=== PATIENT | male | born 1975 | race Caucasian/White ===

== ENCOUNTER 2020-10-23 07:57 | Observation (INO) ==
[2020-10-23 08:14] VITALS: BMI 47.8
--- NOTE | 2020-10-23 08:20 | DR.GENAD ---
HPI Time Seen Time Seen by Provider: 10/23/20 08:11 HPI Comment HPI Comment: PATIENT COMPLAINS OF ACUTE DRY COUGH, FEVER, HEADACHE AND WATERY DIARRHEA 4-5 EPISODES DAILY FOR 1 WEEK. HAD EMESIS INITIALLY NOW DRY HEAVES. DENIES CHEST PAIN, DYSPNEA, HAD EPISODE OF SYNCOPE FELL AND STRUCK LEFT SIDE OF FACE ON FLOOR. UNSURE OF LOSS OF CONSCIOUSNESS. HAS HAD NECK PAIN PAST FEW WEEKS. PATIENT PLACED ON ANTIBIOTICS AUGMENTIN SEVERAL DAYS AGO. Complaint/Symptoms Chief Complaint Doctors Comments: dry cough, fever, diarrhea, syncope COVID-19 Coronavirus risk:travel/contact w/high risk person: No Has patient experienced Coronavirus symptoms: Yes Coronavirus symptoms experienced: Fever and Coughing Nurses notes reviewed Nurses Notes Review: Yes Source History Provided: Patient and EMS Mode of Arrival Mode of Arrival: EMS Timing Onset of Chief Complaint: 10/16/20 Came on: Gradually Duration Duration: Constant Duration: Weeks (1 week) Severity Severity: Moderate Associated Signs and Symptoms Associated Signs and Symptoms: nausea, emesis, diarrhea, syncope PMH PMH Past Surgical History: No Social History Do you use any recreational Drugs:: No Travel Risk Coronavirus risk:travel/contact w/high risk person: No Has patient experienced Coronavirus symptoms: No ROS Review of Systems Constitutional: See HPI and Weakness Eyes: No Symptoms Reported ENTM: No Symptoms Reported Respiratoy: Dry Cough Cardiovascular: No Symptoms Reported Gastrointestinal/Abdominal: See HPI, Diarrhea, Nausea and Vomiting Genitourinary: No Symptoms Reported Neurological: Headache and Other (syncope episode this am) Musculoskeletal: No Symptoms Reported Integumentary: No Symptoms Reported Hematologic/Lymphatic: No Symptoms Reported Endocrine: No Symptoms Reported Psychiatric: No Symptoms Reported All Other Systems: Reviewed and Negative PE Vital Signs Vitals: Temperature 98.1 F Pulse Rate [Left Radial] 72 Pulse Rate 80 Respiratory Rate 18 Blood Pressure [Right Arm] 122/60 Blood Pressure 113/76 O2 Sat by Pulse Oximetry 95 General Limitations: No Limitations General Appearance: Alert and In No Apparent Distress Head Head Exam: Normal Inspection and Other (left facial, zygomatic ecchymosis, tenderness with minimal swelling) Eyes Eye exam: Normal Appearance, PERRL and EOMI ENT ENT Exam: Normal Exam, Normal Oropharynx and Normal External Ear Exam External Ear Exam: Normal External Inspection TM/Canal Exam: Bilateral: Normal Nose Exam: Normal Nose Exam Mouth Exam: Normal Inspection Throat Exam: Normal Inspection Neck Neck Exam: Normal Inspection and Full ROM Chest Chest Inspection: Normal Inspection and Symmetric Chest Wall Rise Respiratory Respiratory Exam: Right: Rales (right base and mid chest) and Right: Crackles (at right base) Cardiovascular Cardiovascular Exam: Regular Rate, Normal Rhythm and Tachycardia Abdominal Exam Abdominal Exam: Normal Inspection, Normal Bowel Sounds and Soft (nontender) Extremities Extremities Exam: Normal Inspection and Full ROM Back Back Exam: Normal Inspection, Full ROM and Tenderness Neurologic Neurological Exam: Alert, Oriented X3 and CN II-XII Intact Psychiatric Psychiatric Exam: Normal Affect, Normal Mood and Depressed Skin Skin Exam: Warm, Dry and Intact MDM Differential Diagnosis Differential Diagnosis: COVID PNEUMONIA, ACUTE BRONCHIOSPASM, SYNCOPE EPISODE, GASTROENTERITIS COURSE Treatment Treatment: IV BOLUS NORMAL SALINE, 1 LITER PER EMS, 2ND LITER BOLUS, PLACE ON SEPSIS PROTOCOL 30ML/122KG, AFTER 2 SETS BLOOD CULTURES LEVAQUIN 750MG IVPB, SOLUMEDROL 125MG IV, SERUM CALCIUM-7.6, ADMINISTERED CALCIUM GLUCONATE 1GM IVPB OVER 1 HOUR. Consultation Call Returned: 12:00 Consultation Comments: DISCUSSED FINDINGS WITH DR CHAPMAN FOR ADMIT TO OBSERVATION, NO MONOCLONAL ANTIBODIES INDICATED, WILL BEGIN REMDESIVIR INFUSION ROR Labs Reviewed Laboratory Results Reviewed?: Yes Result Diagrams: 10/23/20 08:25 10/23/20 08:25 Laboratory: WBC 5.2 X10^3/uL (3.6-10.0) 10/23/20 08:25 RBC 5.41 X10^6/uL (4.7-6.0) 10/23/20 08:25 Hgb 15.9 g/dL (13.5-18.0) 10/23/20 08:25 Hct 45.8 % (42.0-54.0) 10/23/20 08:25 MCV 84.7 fL (80.0-100.0) 10/23/20 08:25 MCH 29.3 pg (27.0-34.0) 10/23/20 08:25 MCHC 34.6 g/dL (33.0-35.0) 10/23/20 08:25 RDW 13.4 % (11.6-16.5) 10/23/20 08:25 Plt Count 142 X10^3/uL (150.0-450.0) L 10/23/20 08:25 MPV 7.9 fL (7.4-11.0) 10/23/20 08:25 Neut % (Auto) 71.7 % (42.0-75.0) 10/23/20 08:25 Lymph % (Auto) 20.2 % (21.0-51.0) L 10/23/20 08:25 [place] % (Auto) 7.7 % (0.0-13.0) 10/23/20 08:25 Eos % (Auto) 0.0 % (0.9-2.9) L 10/23/20 08:25 Baso % (Auto) 0.4 % (0.2-1.0) 10/23/20 08:25 Neut # (Auto) 3.7 x10^3/uL (2.2-4.8) 10/23/20 08:25 Lymph # (Auto) 1.0 X10^3/uL (1.3-2.9) L 10/23/20 08:25 [place] # (Auto) 0.4 x10^3/uL (0.3-0.8) 10/23/20 08:25 Eos # (Auto) 0.0 x10^3/uL (0.0-0.2) 10/23/20 08:25 Baso # (Auto) 0.0 X10^3/uL (0.0-0.1) 10/23/20 08:25 Absolute Nucleated RBC 0.2 /100WBC 10/23/20 08:25 PT 13.6 SECONDS (11.8-14.3) 10/23/20 08:25 INR Target Range - 10/23/20 08:25 INR 1.10 (0.8-1.3) 10/23/20 08:25 D-Dimer 0.52 ug/ml (0.0-0.57) 10/23/20 08:25 Sample Site Rra 10/23/20 10:05 ABG pH 7.420 (7.35-7.45) 10/23/20 10:05 ABG pCO2 38.0 mmHg (35.0-45.0) 10/23/20 10:05 ABG pO2 58.0 mmHg (80.0-100.0) L 10/23/20 10:05 ABG HCO3 24.6 mmol/L (22-26) 10/23/20 10:05 ABG O2 Saturation 90.0 % (90-100) 10/23/20 10:05 ABG Base Excess 0.3 mmol/L (-2.0-2.0) 10/23/20 10:05 Demetrius Test Pos 10/23/20 10:05 A-a Gradient 44.0 mmHg 10/23/20 10:05 FiO2 21.0 10/23/20 10:05 Blood Gas Comments Pt farrah well eb 10/23/20 10:05 Sodium 137 mmol/L (136-145) 10/23/20 08:25 Corrected Sodium TNP 10/23/20 08:25 Potassium 3.8 mmol/L (3.5-5.1) 10/23/20 08:25 Chloride 100 mmol/L (98-107) 10/23/20 08:25 Carbon Dioxide 29.9 mmol/L (21-32) 10/23/20 08:25 BUN 12 mg/dL (7-18) 10/23/20 08:25 Creatinine 1.31 mg/dL (0.70-1.30) H 10/23/20 08:25 Est GFR (MDRD) Af Amer > 60 (>60) 10/23/20 08:25 Est GFR (MDRD) Non-Af > 60 (>60) 10/23/20 08:25 Glucose 102 mg/dL (65-99) H 10/23/20 08:25 Lactic Acid 0.9 mmol/L (0.4-2.0) 10/23/20 08:25 Calcium 7.6 mg/dL (8.5-10.1) L 10/23/20 08:25 Corrected Calcium TNP 10/23/20 08:25 Magnesium 2.2 mg/dL (1.7-2.9) 10/23/20 08:25 Ferritin 412 ng/mL (26-388) H 10/23/20 08:25 Total Bilirubin 0.40 mg/dL (0.2-1.0) 10/23/20 08:25 AST 29 Units/L (15-37) 10/23/20 08:25 ALT 33 Units/L (12-78) 10/23/20 08:25 Alkaline Phosphatase 54 Units/L (46-116) 10/23/20 08:25 Troponin I < 0.02 ng/mL (0-1.5) 10/23/20 08:25 C-Reactive Protein 28.40 mg/L (0-3.0) H 10/23/20 08:25 Total Protein 7.2 g/dL (6.4-8.2) 10/23/20 08:25 Albumin 3.4 g/dL (3.4-5.0) 10/23/20 08:25 Globulin 3.8 g/dL (2.5-4.5) 10/23/20 08:25 Albumin/Globulin Ratio 0.9 Ratio (1.1-2.1) L 10/23/20 08:25 Specimen Type Clean catch urine 10/23/20 10:20 Urine Color Yellow (YELLOW) 10/23/20 10:20 Urine Appearance Clear (CLEAR) 10/23/20 10:20 Urine pH 5.0 (5.0 - 8.0) 10/23/20 10:20 Ur Specific [place] 1.015 (1.000-1.030) 10/23/20 10:20 Urine Protein 2+ (NEGATIVE) 10/23/20 10:20 Urine Glucose (UA) Negative (NEGATIVE) 10/23/20 10:20 Urine Ketones 1+ (NEGATIVE) 10/23/20 10:20 Urine Occult Blood 1+ (NEGATIVE) 10/23/20 10:20 Urine Nitrite Negative (NEGATIVE) 10/23/20 10:20 Urine Bilirubin Negative (NEGATIVE) 10/23/20 10:20 Urine Urobilinogen Normal (NORMAL) 10/23/20 10:20 Ur Leukocyte Esterase Negative (NEGATIVE) 10/23/20 10:20 Urine RBC 0-2 /HPF (0-3) 10/23/20 10:20 Urine WBC 3-5 /HPF (0-5) 10/23/20 10:20 Ur Squamous Epith Cells Rare /HPF (NEGATIVE) 10/23/20 10:20 Urine Bacteria Trace /HPF (NEGATIVE) 10/23/20 10:20 Hyaline Casts Few /LPF (NEGATIVE) 10/23/20 10:20 Ur Culture Indicated? No/not indicated 10/23/20 10:20 SARS-CoV-2 (PCR) Positive (NEGATIVE) A 10/23/20 08:15 Influenza Type A (PCR) Negative (NEGATIVE) 10/23/20 08:15 Influenza Type B (PCR) Negative (NEGATIVE) 10/23/20 08:15 RSV (PCR) Negative (NEGATIVE) 10/23/20 08:15 XRAY XRAY Interpreted by: Radiologist (HEAD CT -NO INTRACRANIAL ABNORMALITY, C SPINE CT NO EVIDENCE OF FRACTURE OR SUBLUXATION, MAXOFACIAL CT- NO EVIDENCE OF FRACTURE) X-ray Results: PORTABLE CHEST XRAY- NO ACUTE INFILTRATES EKG Rate: 76 [place]: Normal Rhythm: NSR Opioid Opioid Risk Tool Age (Juan box if 16-45): No History of Preadolescent Sexual Abuse: No Total: 0 Total Score Risk Category: Low Risk Copyright: Dimas CHRISTOPHER predicting aberrant behaviors Diagnosis Discharge Problem: Bronchitis due to COVID-19 virus, Syncope Instructions Forms: EUA Consent [facility]ov
[2020-10-23] MEDS ORDERED: LEVAQUIN PREMIX IV 750 MG 750 MG/150 ML BAG IV STA (08:21)
[2020-10-23] MEDS ORDERED: NS 1000 ML 1,000 ML IV ONE (08:21)
[2020-10-23] MEDS ORDERED: TYLENOL 500 MG TAB EXTRA STRENGTH PO STA (08:29)
[2020-10-23] MEDS ORDERED: TYLENOL 325 MG TAB PO ONE ×2 (08:31→09:06)
[2020-10-23] MEDS ORDERED: LEVAQUIN PREMIX IV 750 MG 750 MG/150 ML BAG IV ONE (08:31)
[2020-10-23] MEDS ORDERED: SOLU-Medrol 125 MG VIAL IVP STA (08:38)
[2020-10-23 09:02] LABS: BASOPHILS % (AUTO) 0.4 % (0.2-1.0); HEMATOCRIT 45.8 % (42.0-54.0); HEMOGLOBIN 15.9 g/dL (13.5-18.0); LYMPHOCYTES % (AUTO) 20.2 % (21.0-51.0); MEAN CORPUSCULAR HEMOGLOBIN 29.3 pg (27.0-34.0); MEAN CORPUSCULAR HGB CONC 34.6 g/dL (33.0-35.0); MEAN CORPUSCULAR VOLUME 84.7 fL (80.0-100.0); MEAN PLATELET VOLUME 7.9 fL (7.4-11.0); MONOCYTES # (AUTO) 0.4 x10^3/uL (0.3-0.8); MONOCYTES % (AUTO) 7.7 % (0.0-13.0); NEUTROPHILS # (AUTO) 3.7 x10^3/uL (2.2-4.8); NEUTROPHILS % (AUTO) 71.7 % (42.0-75.0); PLATELET COUNT 142 X10^3/uL (150.0-450.0); RED BLOOD COUNT 5.41 X10^6/uL (4.7-6.0); RED CELL DISTRIBUTION WIDTH 13.4 % (11.6-16.5); WHITE BLOOD COUNT 5.2 X10^3/uL (3.6-10.0)
--- NOTE | 2020-10-23 09:10 | CT ---
HISTORYSyncope, head and facial injurySTUDYCT head without contrastTechnique: Axial noncontrast images with coronal and sagittal reformats. Dose reduction procedures were used with mA/kv adjusted for body size.COMPARISONNoneFINDINGSThe ventricles are normal in size shape and position. There are no focal areas of abnormal attenuation to suggest recent or remote CVA, hemorrhage, mass lesion, contusion, or extra-axial fluid collection. The visualized sinuses are clear. The calvarium is intact.IMPRESSIONNo significant intracranial abnormality identifiedElectronically signed by: SHANE BEAL (Oct 23, 2020 09:07:51)
--- NOTE | 2020-10-23 09:11 | CT ---
HISTORYSyncope, facial injurySTUDYMaxillofacial CT without contrastTechnique: Axial noncontrast images with coronal and sagittal reformats. Dose reduction procedures were used with mA/kv adjusted for body size.COMPARISONNoneFINDINGSThere is no evidence for mandibular, nasal, maxillofacial, or orbital fracture. The globes are intact. The retro-orbital soft tissues are normal.IMPRESSIONNo fracture identifiedElectronically signed by: SHANE BEAL (Oct 23, 2020 09:09:22)
--- NOTE | 2020-10-23 09:16 | CT ---
HISTORYFall, neck painSTUDYCT cervical spine without contrastTechnique: Axial noncontrast images with coronal and sagittal reformats. Dose reduction procedures were used with mA/kv adjusted for body size.COMPARISONNoneFINDINGSThere is reversal of the normal cervical lordosis which could be positional or due to muscle spasm. The prevertebral soft tissues are normal. The alignment is normal. The vertebral bodies are of average height. The disc heights are preserved. The pedicles, spinous processes, and posterior elements are intact. The neural foramina are patent. The joints are normal. There is no evidence for fracture or dislocation.IMPRESSIONNo evidence for cervical spine fracture or dislocationReversal of the normal lordotic curve which could be positional or due to muscle spasm.Electronically signed by: SHANE BEAL (Oct 23, 2020 09:14:26)
[2020-10-23 09:18] LABS: ALANINE AMINOTRANSFERASE 33 Units/L (12-78); ALBUMIN 3.4 g/dL (3.4-5.0); ALKALINE PHOSPHATASE 54 Units/L (46-116); ASPARTATE AMINO TRANSFERASE 29 Units/L (15-37); BLOOD UREA NITROGEN 12 mg/dL (7-18); CALCIUM 7.6 mg/dL (8.5-10.1); CARBON DIOXIDE 29.9 mmol/L (21-32); CHLORIDE 100 mmol/L (98-107); CREATININE 1.31 mg/dL (0.70-1.30); MAGNESIUM 2.2 mg/dL (1.7-2.9); SODIUM 137 mmol/L (136-145); TOTAL PROTEIN 7.2 g/dL (6.4-8.2); TROPONIN I < 0.02 ng/mL (0-1.5); eGFR NON BLACK RACES > 60 (>60)
[2020-10-23 09:19] LABS: LACTIC ACID 0.9 mmol/L (0.4-2.0)
[2020-10-23] MEDS ORDERED: CALCIUM CHLORIDE INJ IV STA (09:37)
[2020-10-23] MEDS ORDERED: SOLU-Medrol 125 MG VIAL ONE (10:00)
--- NOTE | 2020-10-23 10:07 | RAD ---
HISTORYDRY COUGHSTUDYCHEST, PA/LAT ADULTCOMPARISONNoneFINDINGSThe trachea is midline. The cardiac silhouette is unremarkable . The lungs are clear without focal infiltrate or effusion. The bony thorax is unremarkable.IMPRESSIONNo acute cardiopulmonary disease.Electronically signed by: IVETT LYNN (Oct 23, 2020 10:05:47)
[2020-10-23 10:08] LABS: ABG ALLEN TEST POS; ABG BASE EXCESS 0.3 mmol/L (-2.0-2.0); ABG HCO3 24.6 mmol/L (22-26)
[2020-10-23 10:29] LABS: BILIRUBIN,URINE NEGATIVE (NEGATIVE); BLOOD/HEMOGLOBIN,URINE 1+ (NEGATIVE); GLUCOSE, URINE NEGATIVE (NEGATIVE); KETONES,URINE 1+ (NEGATIVE); LEUKOCYTE ESTERASE ,URINE NEGATIVE (NEGATIVE); NITRITES,URINE NEGATIVE (NEGATIVE); PROTEIN,URINE 2+ (NEGATIVE); UROBILINOGEN,URINE NORMAL (NORMAL)
[2020-10-23 10:47] LABS: APPEARANCE,URINE CLEAR (CLEAR); COLOR,URINE YELLOW (YELLOW)
[2020-10-23 10:48] LABS: BACTERIA,URINE TRACE /HPF (NEGATIVE); HYALINE CASTS, URINE FEW /LPF (NEGATIVE); RBC,URINE 0-2 /HPF (0-3); SQUAMOUS EPITHELIAL CELL,UR RARE /HPF (NEGATIVE)
[2020-10-23] MEDS ORDERED: CALCIUM GLUCONATE 10% 1 G in NS 100 ML IV 100 ML IV ONE (11:00)
[2020-10-23] MEDS ORDERED: ZOFRAN INJ 4 MG VIAL IVP PRN (12:27)
[2020-10-23] MEDS ORDERED: TYLENOL 325 MG TAB PO PRN (12:27)
[2020-10-23] MEDS ORDERED: DUONEB 0.5 MG/3 MG (3 mL) NEB ONE (14:15)
[2020-10-23] MEDS: DUONEB 0.5 MG/3 MG (3 mL) NEB SCH ×3 (14:16→21:15)
[2020-10-23] MEDS ORDERED: REMDESIVIR 200 MG in NS 250 ML IV 250 ML IV ONE (14:17)
[2020-10-23] MEDS ORDERED: SOLU-Medrol 40 MG VIAL ONE (14:18)
[2020-10-23] MEDS ORDERED: NS 1000 ML 1,000 ML ONE (14:19)
[2020-10-23] MEDS ORDERED: REMDESIVIR IV ONE (14:19)
[2020-10-23] MEDS ORDERED: NS 250 ML IV 250 ML IV ONE (14:19)
[2020-10-23] MEDS: SOLU-Medrol 125 MG VIAL IVP SCH ×2 (14:35→21:03)
[2020-10-23] MEDS: NS 1000 ML 1,000 ML IV SCH (14:35)
[2020-10-23] MEDS ORDERED: TUSSIONEX PENNKINETIC SUSP PO PRN (14:43)
[2020-10-23] MEDS ORDERED: PHARMACY CONSULT - IVERMECTIN XX SCH (15:00)
[2020-10-23] MEDS ORDERED: PROTONIX TAB 40 MG PO SCH (15:00)
[2020-10-23] MEDS ORDERED: VITAMIN D3 125 mcg (5,000 UNITS) PO SCH (15:00)
[2020-10-23] MEDS ORDERED: PEPCID TAB 20 MG PO SCH (15:00)
[2020-10-23] MEDS ORDERED: ZINC SULFATE PO SCH (15:00)
[2020-10-23] MEDS ORDERED: ZyrTEC TAB 10 MG PO SCH (15:00)
[2020-10-23] MEDS ORDERED: TESSALON PERLES PO SCH (15:00)
[2020-10-23] MEDS ORDERED: ASCORBIC ACID INJ MULTI-DOSE VIAL 1,500 MG in NS 50 ML IV 50 ML IV SCH (15:00)
[2020-10-23] MEDS ORDERED: LOVENOX INJ 30 MG SYR SC SCH (16:00)
[2020-10-23] MEDS ORDERED: IVERMECTIN PO ONE (16:00)
[2020-10-23] MEDS ORDERED: SINGULAIR TAB 10 MG PO SCH (21:00)
[2020-10-23] MEDS ORDERED: MELATONIN PO SCH (21:00)
[2020-10-23] MEDS ORDERED: PULMICORT NEB TX 0.5 MG NEB SCH (21:00)
[2020-10-23] MEDS ORDERED: LIPITOR TAB 80 MG PO SCH (21:00)
[2020-10-23] MEDS: PULMICORT NEB TX 0.5 MG NEB SCH (21:15)
[2020-10-24] MEDS: NS 1000 ML 1,000 ML IV SCH (04:33)
[2020-10-24] MEDS: SOLU-Medrol 125 MG VIAL IVP SCH ×2 (05:06→14:50)
[2020-10-24 05:33] LABS: BASOPHILS % (AUTO) 0.2 % (0.2-1.0); HEMATOCRIT 42.9 % (42.0-54.0); HEMOGLOBIN 15.1 g/dL (13.5-18.0); LYMPHOCYTES # (AUTO) 0.6 X10^3/uL (1.3-2.9); LYMPHOCYTES % (AUTO) 17.5 % (21.0-51.0); MEAN CORPUSCULAR HEMOGLOBIN 29.3 pg (27.0-34.0); MEAN CORPUSCULAR HGB CONC 35.2 g/dL (33.0-35.0); MEAN CORPUSCULAR VOLUME 83.1 fL (80.0-100.0); MEAN PLATELET VOLUME 8.4 fL (7.4-11.0); MONOCYTES # (AUTO) 0.1 x10^3/uL (0.3-0.8); MONOCYTES % (AUTO) 3.7 % (0.0-13.0); NEUTROPHILS # (AUTO) 2.5 x10^3/uL (2.2-4.8); NEUTROPHILS % (AUTO) 78.6 % (42.0-75.0); PLATELET COUNT 135 X10^3/uL (150.0-450.0); RED BLOOD COUNT 5.16 X10^6/uL (4.7-6.0); RED CELL DISTRIBUTION WIDTH 13.4 % (11.6-16.5); WHITE BLOOD COUNT 3.2 X10^3/uL (3.6-10.0)
[2020-10-24 06:07] LABS: ALANINE AMINOTRANSFERASE 29 Units/L (12-78); ALBUMIN 3.1 g/dL (3.4-5.0); ALKALINE PHOSPHATASE 52 Units/L (46-116); ASPARTATE AMINO TRANSFERASE 22 Units/L (15-37); BLOOD UREA NITROGEN 14 mg/dL (7-18); CALCIUM 8.1 mg/dL (8.5-10.1); CARBON DIOXIDE 22.1 mmol/L (21-32); CHLORIDE 105 mmol/L (98-107); COR CA(FOR HYPOALB) 8.8 mg/dL (8.5-10.1); COR NA(FOR HYPERGLY) 143 mmol/L (136-145); CREATININE 1.15 mg/dL (0.70-1.30); SODIUM 139 mmol/L (136-145); TOTAL PROTEIN 7.1 g/dL (6.4-8.2); eGFR NON BLACK RACES > 60 (>60)
--- NOTE | 2020-10-24 07:21 | RAD ---
Chest AP portableIndication: Dyspnea.Comparison October 23, 2020FINDINGSThere is no pneumothorax or effusion. Monitoring leads obscure minimal detail. No dense consolidation seen. Heart size is prominent.IMPRESSIONSlightly prominent heart size with minimal increased interstitial markings. Correlate clinically for cardiogenic dysfunction. No dense consolidation convincingly demonstratedElectronically signed by: LEVAR HINDS (Oct 24, 2020 07:18:36)
[2020-10-24] MEDS ORDERED: REMDESIVIR 100 MG in NS 250 ML IV 250 ML IV SCH ×2 (09:00→14:00)
[2020-10-24] MEDS ORDERED: LEVAQUIN PREMIX IV 750 MG 750 MG/150 ML BAG IV SCH (09:00)
[2020-10-24] MEDS: DUONEB 0.5 MG/3 MG (3 mL) NEB SCH ×2 (09:09→13:18)
[2020-10-24] MEDS: PULMICORT NEB TX 0.5 MG NEB SCH (09:09)
[2020-10-24] MEDS ORDERED: REMDESIVIR 200 MG in NS 250 ML IV 250 ML IV ONE (09:33)
[2020-10-24 14:49] VITALS: BP 131/77
[2020-10-26] MEDS ORDERED: IVERMECTIN PO ONE (06:30)
--- NOTE | 2020-11-12 12:22 | DR.CARTERS ---
Short Stay Summary - Admission Date Date of Admission: 10/23/20 - Discharge Date Discharge Date: 10/24/20 - Admission Diagnoses (1) Bronchitis due to COVID-19 virus Status: Acute (2) Syncope Status: Acute - Hospital Course Hospital Course: TIME SPENT ON CLINICAL ASSESSMENT, REVIEWING LABS AND IMAGING, DECISION MAKING, AND DOCUMENTATION GREATER THAN 75 MINUTES. IS A 45 YEAR OLD WHITE MALE WHO PRESENTED TO THE EMERGENCY DEPARTMENT WITH COMPLAINTS OF NON-PRODUCTIVE COUGH, CHEST PAIN, SHORTNESS OF BREATH, DIARRHEA, FEVER, AND HEADACHE. SYMPTOMS STARTED APPROXIMATELY ONE WEEK PRIOR. PATIENT ALSO REPORTED HAVING A SYNCOPAL EPISODE AND STRIKING THE LEFT SIDE OF HIS FACE ON THE FLOOR. HIS SPOUSE DENIED KNOWLEDGE OF LOSS OF CONSCIOUSNESS. HE DOES ADMIT TO NECK PAIN SINCE FALLING. SYMPTOMS STARTED ABOUT A WEEK AGO. HE WAS STARTED ON AUGMENTIN 875/125MG PO BID ABOUT 4-5 DAYS AGO. HE DENIES ANY SIGNIFICANT MEDICAL HISTORY, HOWEVER, PATIENT IS OBESE, WITH BMI OF 47.8. ON ARRIVAL TO THE HOSPITAL, VITALS WERE 98.1-80-16-93%-113/76. LABS WERE OBTAINED. ABNORMAL LAB VALUES INCLUDED THE FOLLOWING: PLT COUNT 142, CREATININE 1.31, GLUCOSE 102, CALCIUM 7.6, FERRITIN 412, CRP 28.40. ABG OBTAINED AND REVEALED: PH 7.420, PC02 38, P02 58, HC03 24.6, 02 SAT 90, A-A GRADIENT 44, FI02 21.0. URINALYSIS WAS UNREMARKABLE. COVID-19 POSITIVE. INFLUENZA AND RSV NEGATIVE. BLOOD CULTURES WERE SET UP. A BRAIN CT WAS OBTAINED AND REVEALED: NO SIGNIFICANT INTRACRANIAL ABNORMALITY IDENTIFIED. C-SPINE CT REVEALED: No evidence for cervical spine fracture or dislocation. Reversal of the normal lordotic curve which could be positional or due to muscle spasm. CHEST XRAY REVEALED: No acute cardiopulmonary disease. FACIAL BONES CT REVEALED: NO FRACTURE IDENTIFIED. EKG REVEALED: SINUS RHYTHM WITH HR 76. IN THE ER, HE WAS GIVEN LEVAQUIN 750MG IV X 1, SOLU-MEDROL 125MG IV X 1, TYLENOL 650MG PO X 1, CALCIUM GLUCONATE 1G IV X 1. HE WAS ADMITTED TO THE HOSPITAL FOR FURTHER EVALUATION AND TREATMENT OF COVID- 19, ACUTE BRONCHITIS, AND SYNCOPE. HE WAS STARTED ON DUONEBS QID, PULMICORT NEBS BID, SOLU-MEDROL 80MG IV Q8H, REMDESIVIR 200MG IV X 1, THEN 100MG IV DAILY, ASCORBIC ACID 1500MG IV Q6H, PEPCID 20MG PO BID, PROTONIX 40MG PO BID, TESSALON PERLES 200MG PO TID, VITAMIN D3 125MCG PO DAILY, ZINC SULFATE 220MG PO DAILY, ZYRTEC 10MG PO DAILY, IVERMECTIN, LOVENOX 30MG SC BID, LEVAQUIN 750MG IV DAILY. OTHERWISE, WE PLANNED TO FOLLOW UP WITH AM LABS AND CONTINUE TO MONITOR. ON MORNING ROUNDS, PATIENT IS ALERT AND ORIENTED, SITTING UP IN BED ON MORNING ROUNDS. HE CONTINUES WITH INTERMITTENT COUGH AND SHORTNESS OF BREATH. HE DENIES FEVER THROUGHOUT THE NIGHT. OXYGEN SATURATIONS HAVE REMAINED IN THE 90s ON ROOM AIR. ON EXAMINATION, HEART IS REGULAR IN RATE AND RHYTHM. BILATERAL LUNGS NOTED WITH DIMINISHED LUNG SOUNDS THROUGHOUT. ABDOMEN IS OBESE, SOFT, AND NON-TENDER WITH NORMAL BOWEL SOUNDS NOTED IN ALL QUADRANTS. HIS VITALS THIS MORNING ARE: 97.8-94-29-97%-128/95. LABS WERE OBTAINED. ABNORMAL LAB VALUES INCLUDE THE FOLLOWING: RBC 3.2, GLUCOSE 277, CALCIUM 8.1, TOTAL BILI 0.10, CRP 21.50, ALBUMIN 3.1. CHEST XRAY REVEALED: Slightly prominent heart size with minimal increased interstitial markings. Correlate clinically for cardiogenic dysfunction. No dense consolidation convincingly demonstrated. WE PLANNED FOR DISCHARGE. INSTRUCTIONS FOR MEDICATIONS AND FOLLOW UP WERE DISCUSSED WITH PATIENT AND FAMILY. THEY VERBALIZED UNDERSTANDING OF ORDERS. PATIENT WILL RETURN TO THE HOSPTIAL FOR THE NEXT 3 DAYS FOR REMDESIVIR INFUSION. HE WAS PRESCRIBED TESSALON PERLES 200MG PO TID, DUONEBS TID, LEVAQUIN 500MG IV DAILY X 10 DAYS, MEDROL DOSEPACK. HE WSS INSTRUCTED TO FOLLOW UP VIA TELEMEDICINE VISIT IN 1 WEEK. PATIENT WAS DISCHARGED HOME WITH FAMILY IN STABLE CONDITION. TIME SPENT ON CLINICAL ASSESSMENT, REVIEWING LABS AND IMAGING, DECISION MAKING, DISCHARGE INSTRUCTIONS, PREPARING DISCHARGE PAPERS, AND DOCUMENTATION GREATER THAN 75 MINUTES. - Discharge Medications Discharge Medications: Home Medication List NK 10/23/20 [History] benzonatate [Tessalon Perles] 200 mg PO TID #42 cap 10/24/20 [Rx] ipratropium-albuterol 1 neb NEB TID #90 each 10/24/20 [Rx] levofloxacin 500 mg PO DAILY #10 tab 10/24/20 [Rx] methylprednisolone [Medrol (James)] See Rx Instructions .ROUTE .COMPLEX #1 ea 10/24/20 [Rx] remdesivir 100 mg IV DAILY #2 ea 10/24/20 [Rx] Prescriptions: benzonatate [Tessalon Perles] Davin Bass ipratropium-albuterol Davin Bass levofloxacin Davin Bass methylprednisolone [Medrol (James)] Davin Bass remdesivir Davin Bass - Discharge Plan Disposition: HOME, SELF-CARE Condition: Stable Prescriptions: benzonatate [Tessalon Perles] 200 mg PO TID #42 cap ipratropium-albuterol 1 neb NEB TID #90 each levofloxacin 500 mg PO DAILY #10 tab methylprednisolone [Medrol (James)] See Rx Instructions .ROUTE .COMPLEX #1 ea remdesivir 100 mg IV DAILY #2 ea - Follow up/Referrals Follow up/Referrals: Remdesiver [Other] - 10/25/20 8:30 am Davin Bass [STAFF PHYSICIAN] - 10/24/20 (Return new patient packet to Dr. Bass's office.) - Instructions Instructions: Incentive Spirometer, Hand Washing, [id number], Antibiotic Medicine, Adult, Upper Respiratory Infection, Adult, Droplet Precautions, [id number], Contact Precautions, [id number], You've Been Prescribed an A ntibiotic in the Hospital for an Infection - [facility] (07/2017) Additional Instructions: DIET TOLERATED. ACTIVITY TOLERATED. Forms: Excuse From Work or School, Precautions for COVID19, Patient Portal, Regen-Cov, Social Distancing
== END 2020-10-24 14:20 | disposition home or self-care (01) ==
LOC: OBS 07:57 → ICU 07:57 → ER 07:57 → INTOOBSV 12:35 → OBSVTOIN 12:35 → OBS 13:01
PROVIDERS: ADMIT Internal Medicine; ATTEND Internal Medicine
DX: R51.9 Headache, unspecified; U07.1 COVID-19; J20.8 Acute bronchitis due to other specified organisms; M54.2 Cervicalgia; R79.82 Elevated C-reactive protein (CRP); W18.39XA Other fall on same level, initial encounter; S09.8XXA Other specified injuries of head, initial encounter; R79.89 Other specified abnormal findings of blood chemistry; R05 Cough; R55 Syncope and collapse